=== PATIENT | male | born 2000 | race American Indian/Alaskan Native ===

== ENCOUNTER 2021-09-18 11:54 | Emergency (ER) | payer SELFPAY ==
[2021-09-18] MEDS ORDERED: SODIUM CHLORIDE 0.9% 1000 ML 1,000 ML IV ONE (12:35)
[2021-09-18] MEDS ORDERED: KETOROLAC 30 MG/1 ML INJ IV ONE (12:36)
[2021-09-18 13:32] LABS: Hematocrit 45.8 % (35.5-45.6); Hemoglobin 14.7 gm/dl (11.8-15.2); Mean Corpuscular HGB Conc 32 % (32-34); Mean Corpuscular Volume 96 fl (84-94); Platelet Count 261 K/mm3 (140-440); Red Blood Count 4.75 M/mm3 (3.65-5.03); Red Cell Distribution Width 13.7 % (13.2-15.2)
[2021-09-18 13:33] LABS: INR 0.97 (0.87-1.13)
--- NOTE | 2021-09-18 13:44 | XRay Report ---
CHEST 2 VIEWS INDICATION / CLINICAL INFORMATION: Chest Pain. COMPARISON: None available. FINDINGS: SUPPORT DEVICES: None. HEART / MEDIASTINUM: No significant abnormality. LUNGS / PLEURA: No significant pulmonary or pleural abnormality. No pneumothorax. ADDITIONAL FINDINGS: No significant additional findings. IMPRESSION: 1. No acute findings. Signer Name: Jason Aleman MD Signed: 09/18/2021 1:40 PM Workstation Name: [employer] [facility]
[2021-09-18 13:49] LABS: Alanine Aminotransferase 24 units/L (7-56); Albumin 4.9 g/dL (3.9-5); BUN/Creatinine Ratio 16; Blood Urea Nitrogen 14 mg/dL (9-20); Calcium 9.2 mg/dL (8.4-10.2); Hemolysis Index 17
--- NOTE | 2021-09-18 14:11 | Emergency Department Report ---
ED Chest Pain HPI - General Chief Complaint: Chest Pain Stated Complaint: CHEST SIDE RT BACK PAIN Time Seen by Provider: 09/18/21 12:35 Source: patient Mode of arrival: Ambulatory Limitations: No Limitations - History of Present Illness Initial Comments: left side pain since , c/o CP for months. Hasnot been seen for either. MD Complaint: chest pain -: Gradual, month(s) Pain Location: left chest Pain Radiation: none Severity scale (0 -10): 10 Quality: sharp Consistency: intermittent Improves With: nothing Worsens With: nothing Treatments Prior to Arrival: none - Related Data Allergies Allergy/AdvReac Type Severity Reaction Status Date / Time No Known Allergies Allergy Unverified 09/18/21 12:15 Heart Score - HEART Score History: Slightly suspicious EKG: Non-specific Age: < 45 Risk factors: No known risk factors Troponin: < normal limit HEART Score: 1 - EKG Read Time Time EKG Completed: 14:00 EKG Read Time: 14:00 - Critical Actions Critical Actions: 0-3 pts:0.9-1.7%risk of adverse cardiac event.Candidate for discharge ED Review of Systems ROS: Stated complaint: CHEST SIDE RT BACK PAIN Other details as noted in HPI Constitutional: denies: chills, fever Eyes: denies: eye pain, eye discharge, vision change ENT: denies: ear pain, throat pain Respiratory: denies: cough, shortness of breath, wheezing Cardiovascular: denies: chest pain, palpitations Endocrine: no symptoms reported Gastrointestinal: denies: abdominal pain, nausea, diarrhea Genitourinary: denies: urgency, dysuria Musculoskeletal: denies: back pain, joint swelling, arthralgia Skin: denies: rash, lesions Neurological: denies: headache, weakness, paresthesias Psychiatric: denies: anxiety, depression Hematological/Lymphatic: denies: easy bleeding, easy bruising ED Past Medical Hx - Past Medical History Hx Hypertension: No ED Physical Exam - General Limitations: No Limitations General appearance: alert, in no apparent distress - Head Head exam: Present: atraumatic, normocephalic - Eye Eye exam: Present: normal appearance - ENT ENT exam: Present: mucous membranes moist - Neck Neck exam: Present: normal inspection - Respiratory Respiratory exam: Present: normal lung sounds bilaterally. Absent: respiratory distress - Cardiovascular Cardiovascular Exam: Present: regular rate, normal rhythm. Absent: systolic murmur, diastolic murmur, rubs, gallop - GI/Abdominal GI/Abdominal exam: Present: soft, normal bowel sounds - Rectal Rectal exam: Present: deferred - Extremities Exam Extremities exam: Present: normal inspection - Back Exam Back exam: Present: normal inspection - Neurological Exam Neurological exam: Present: alert, oriented X3 - Psychiatric Psychiatric exam: Present: normal affect, normal mood - Skin Skin exam: Present: warm, dry, intact, normal color. Absent: rash ED Course Vital Signs 09/18/21 09/18/21 09/18/21 12:17 12:36 13:01 Temperature 98.5 F Pulse Rate 60 Respiratory 16 Rate Blood Pressure 126/78 138/75 O2 Sat by Pulse 100 100 100 Oximetry 09/18/21 09/18/21 13:31 14:01 Temperature Pulse Rate 57 L 50 L Respiratory 16 19 Rate Blood Pressure 121/71 118/76 O2 Sat by Pulse 100 100 Oximetry ED Medical Decision Making - Lab Data Result diagrams: 09/18/21 13:10 09/18/21 13:10 - EKG Data -: EKG Interpreted by De EKG shows normal: sinus rhythm Rate: bradycardia - EKG Data Interpretation: other (early repolarization ) - Radiology Data Radiology results: report reviewed, image reviewed work up negative , spoke with brittney about EKG and send him a picture , he agrees it is early repolarization Critical care attestation.: If time is entered above; I have spent that time in minutes in the direct care of this critically ill patient, excluding procedure time. ED Disposition Clinical Impression: Chest pain Disposition: HOME / SELF CARE / HOMELESS Is pt being admited?: No Does the pt Need Aspirin: No Condition: Stable Instructions: Nonspecific Chest Pain, Adult, Nonspecific Chest Pain, Adult, [id number] Referrals: SELMA BEE MD [Referring] - 3-5 Days
[2021-09-18 14:36] LABS: Bilirubin,Urine NEG (Negative); Blood,Urine NEG (Negative); Color,Urine Colorless (Yellow); Protein,Urine <15 mg/dL mg/dL (Negative); Urobilinogen,Urine < 2.0 mg/dL (<2.0)
[2021-09-18 14:37] LABS: RBC,Urine < 1.0 /HPF (0.0-6.0); WBC,Urine < 1.0 /HPF (0.0-6.0)
[2021-09-18 14:39] LABS: Amphetamine Screen,Urine Negative; Benzodiazepines Screen,Urine Negative; Cocaine Screen,Urine Negative; Methadone Screen,Urine Negative; Opiate Screen,Urine Negative
[2021-09-18 14:42] VITALS: BP 122/73
[2021-09-18 14:58] LABS: Cannabinoid Screen,Urine Positive
--- NOTE | 2021-09-19 10:24 | Electrocardiograph Report ---
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
--- NOTE | 2021-09-19 10:24 | Electrocardiograph Report ---
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
== END 2021-09-18 14:42 | disposition home or self-care (01) ==
LOC: ED 11:54
DX: R07.89 Other chest pain (principal); Z79.899 Other long term (current) drug therapy
CPT/HCPCS: 36415; 71046; 80053; 80307; 81001; 82550; 83690; 84484; 85025; 85610; 93005; 96361; 96374; 99284; J1885; J7030